=== PATIENT | male | born 1970 | race Hispanic/Latino ===

== ENCOUNTER 2019-05-08 20:18 | Emergency (ER) | payer SELFPAY ==
--- NOTE | 2019-05-08 21:19 | Emergency Department Report ---
Blank Doc - Documentation Documentation: [id number] that presents with right flank pain and hematuria. This initial assessment/diagnostic orders/clinical plan/treatment(s) is/are subject to change based on patient's health status, clinical progression and re- assessment by fellow clinical providers in the ED. Further treatment and workup at subsequent clinical providers discretion. Patient/guardians urged not to elope from the ED as their condition may be serious if not clinically assessed and managed. Initial orders include: 1- Patient sent to [facility] for further evaluation and treatment 2- UA 3- CT abd
[2019-05-08 21:53] LABS: Bilirubin,Urine NEG (Negative); Blood,Urine LG (Negative); Color,Urine Red (Yellow)
[2019-05-08 21:54] LABS: RBC,Urine > 120.0 /HPF (0.0-6.0)
[2019-05-08] MEDS ORDERED: ONDANSETRON 4 MG/2 ML INJ IV ONE (23:08)
[2019-05-08] MEDS ORDERED: MORPHINE 4 MG/1 ML INJ IV ONE (23:08)
--- NOTE | 2019-05-08 23:12 | Emergency Department Report ---
ED Abdominal Pain HPI - General Chief Complaint: Urogenital-Male Stated Complaint: HEMATURIA Time Seen by Provider: 05/08/19 21:19 Source: patient, EMS Mode of arrival: Ambulatory Limitations: No Limitations - History of Present Illness Initial Comments: Patient is 48 years old male with no significant past medical history. Patient brought to the emergency room from [facility] for evaluation of sudden onset of right flank pain that radiated down to his right groin associated with hematuria. Patient symptoms started yesterday. Patient stated that he has been nauseated but no vomiting. Patient denied any fever or chills. Patient denied any chest pain or shortness of breath. MD Complaint: flank pain -: Sudden, Last night Location: R flank Radiation: other (groin) Migration to: no migration Severity: moderate Severity scale (0 -10): 6 Quality: sharp Consistency: constant - Related Data Allergies Allergy/AdvReac Type Severity Reaction Status Date / Time NSAIDS (Non-Steroidal Allergy Anaphylaxis Verified 05/08/19 21:22 Anti-Inflamma shellfish derived Allergy Anaphylaxis Verified 05/08/19 21:22 ED Review of Systems ROS: Stated complaint: HEMATURIA Other details as noted in HPI Comment: All other systems reviewed and negative Constitutional: denies: chills, fever Respiratory: denies: cough, shortness of breath, SOB with exertion, SOB at rest Cardiovascular: denies: chest pain Gastrointestinal: abdominal pain, nausea. denies: vomiting, diarrhea, constipation, hematemesis, melena Genitourinary: hematuria. denies: urgency, dysuria, frequency, discharge, testicular pain, testicular mass Musculoskeletal: back pain Neurological: denies: headache, weakness, numbness, paresthesias, confusion ED Past Medical Hx - Past Medical History Previous Medical History?: Yes Hx Psychiatric Treatment: Yes (DEPRESSION) - Surgical History Past Surgical History?: No - Social History Smoking Status: Never Smoker Substance Use Type: None ED Physical Exam - General Limitations: No Limitations General appearance: alert, in no apparent distress, anxious - Head Head exam: Present: atraumatic, normocephalic, normal inspection - Eye Eye exam: Present: normal appearance - ENT ENT exam: Present: normal exam, normal orophraynx, mucous membranes moist - Neck Neck exam: Present: normal inspection, full ROM. Absent: tenderness, meningismus, lymphadenopathy, thyromegaly - Respiratory Respiratory exam: Present: normal lung sounds bilaterally - Cardiovascular Cardiovascular Exam: Present: regular rate, normal rhythm, normal heart sounds - GI/Abdominal GI/Abdominal exam: Present: soft, normal bowel sounds. Absent: distended, tenderness, guarding, rebound, rigid, organomegaly, mass, bruit, pulsatile mass, hernia - Extremities Exam Extremities exam: Present: normal inspection, full ROM, normal capillary refill. Absent: pedal edema, calf tenderness - Back Exam Back exam: Present: normal inspection, full ROM. Absent: CVA tenderness (R), CVA tenderness (L) - Neurological Exam Neurological exam: Present: alert, oriented X3, CN II-XII intact, normal gait, reflexes normal - Psychiatric Psychiatric exam: Present: normal mood - Skin Skin exam: Present: warm, intact, normal color ED Course Vital Signs 05/08/19 20:55 Temperature 99.6 F Pulse Rate 90 Respiratory 20 Rate Blood Pressure 155/105 O2 Sat by Pulse 95 Oximetry ED Medical Decision Making - Lab Data Result diagrams: 05/08/19 23:21 05/08/19 23:21 - Radiology Data Radiology results: report reviewed - Medical Decision Making Patient is 48 years old male with no significant past medical history. Patient brought to the emergency room from [facility] for evaluation of sudden onset of right flank pain that radiated down to his right groin associated with hematuria. Patient symptoms started yesterday. Patient stated that he has been nauseated but no vomiting. Patient denied any fever or chills. Patient denied any chest pain or shortness of breath. Patient received morphine and Zofran. Patient stated that he is feeling better. Labs reviewed and showed a UTI. CT abdomen and pelvis is negative for acute finding. Patient given prescription for ciprofloxacin and tramadol and Zofran and advised to follow-up with his primary care physician in the next 2 to 3 days and to return to the ER if symptoms are not improved. Critical care attestation.: If time is entered above; I have spent that time in minutes in the direct care of this critically ill patient, excluding procedure time. ED Disposition Clinical Impression: Abdominal pain, UTI (urinary tract infection) Disposition: TO HOME OR SELFCARE Is pt being admited?: No Condition: Stable Instructions: Urinary Tract Infection in Men (ED), Abdominal Pain (ED) Referrals: LENA MAURICIO MD [Primary Care Provider] - 3-5 Days
--- NOTE | 2019-05-08 23:30 | Cat Scan Report ---
CT abdomen pelvis wo con INDICATION: flank pain. TECHNIQUE: All CT scans at this location are performed using the following dose modulation technique: Automated exposure control. Helical slices were obtained through the abdomen and pelvis. No contrast is adminis tered. COMPARISON: None available. FINDINGS: Abdomen: No acute abnormality is seen in the lower chest area the liver, spleen, pancreas, adrenal gl ands, and small bowel show no acute abnormality. There is a 2.5 cm myelolipoma in the right adrenal g land. The appendix is unremarkable. There is a hyperdense cyst in the upper pole the right kidney. There is no hydronephrosis. There are no ureteral calculi. There are no renal calculi. The aorta is normal in diameter. There is no adenopathy. Pelvis: There is sigmoid diverticulosis. There is no CT evidence of diverticulitis. There is scattere d diverticula throughout the colon. There is no obstruction or inflammation. There is no free air. On review of bone windows, postoperative changes are noted in the upper lumbar spine. No acute osseo us abnormality is seen. IMPRESSION: 1. There is no obstruction, inflammation, or free air. There are no abnormal fluid collections. There is a myelolipoma in the right adrenal gland. There is a hyperdense cyst in the right kidney. Signer Name: Stephan Craig MD Signed: 05/08/2019 11:26 PM Workstation Name: [id number]
[2019-05-08 23:38] LABS: Basophils # (Auto) 0.1 K/mm3 (0.0-0.1); Basophils % (Auto) 0.7 % (0.0-1.8); Eosinophils # (Auto) 0.2 K/mm3 (0.0-0.4); Eosinophils % (Auto) 2.1 % (0.0-4.3); Hematocrit 41.1 % (35.5-45.6); Hemoglobin 14.5 gm/dl (11.8-15.2); Lymphocytes % (Auto) 24.4 % (13.4-35.0); Mean Corpuscular HGB Conc 35 % (32-34); Mean Corpuscular Volume 86 fl (84-94); Monocytes # (Auto) 0.5 K/mm3 (0.0-0.8); Monocytes % (Auto) 6.6 % (0.0-7.3); Platelet Count 161 K/mm3 (140-440); Red Blood Count 4.78 M/mm3 (3.65-5.03); Red Cell Distribution Width 13.9 % (13.2-15.2)
[2019-05-08 23:58] LABS: BUN/Creatinine Ratio 11; Blood Urea Nitrogen 9 mg/dL (9-20); Calcium 9.1 mg/dL (8.4-10.2); Hemolysis Index 4
[2019-05-09] MEDS ORDERED: MORPHINE 2 MG/1 ML INJ IV ONE (00:45)
[2019-05-09] MEDS ORDERED: cefTRIAXone/NS 1 GM/50 ML 1 GM/50 ML BAG IV ONE (00:53)
[2019-05-09 04:48] VITALS: BP 114/80
== END 2019-05-09 03:15 | disposition home or self-care (01) ==
LOC: ED 20:18
DX: N39.0 Urinary tract infection, site not specified (principal); F32.9 Major depressive disorder, single episode, unspecified; Z91.013 Allergy to seafood; Z88.6 Allergy status to analgesic agent
CPT/HCPCS: 36415; 74176; 80048; 81001; 85025; 87086; 96365; 96375; 96376; 99284; J0696; J2270; J2405

== ENCOUNTER 2019-05-09 13:19 | Emergency (ER) | payer SELFPAY ==
[2019-05-09] MEDS ORDERED: FAMOTIDINE 20 MG/2 ML INJ IV ONE (14:07)
[2019-05-09] MEDS ORDERED: methylPREDNISolone Sod Succinate 125 MG/2 ML INJ IV ONE (14:07)
[2019-05-09] MEDS ORDERED: MORPHINE 4 MG/1 ML INJ IV ONE ×2 (14:07→16:21)
[2019-05-09] MEDS ORDERED: IPRATROPIUM/ALBUTEROL SULFATE 3 ML AMPUL.NEB IH ONE (14:08)
--- NOTE | 2019-05-09 14:32 | Emergency Department Report ---
HPI - General Chief Complaint: Allergic Reaction Time Seen by Provider: 05/09/19 14:00 - HPI HPI: 48-year-old male presents to the emergency department from [facility] where he is being treated for some depression due to the recent loss of his . The patient was previously a 1013 there but has been transferred over to voluntary status. The patient presents to the ED today because of an allergic reaction to some fish that he ate. He says that he had some itching, rash, swelling of the tongue and it caused some wheezing within the chest. The patient received some Benadryl which resolved the tongue swelling, but he still complains of the other symptoms, although improved from when this first occurred. Secondly, the patient also complains of some right flank pain and hematuria. The patient was recently seen at [facility] for the "kidney pain" and the hematuria and the patient says that he had a CT scan completed that showed "some type of mass or cyst." However the patient was medically cleared to go to [place] from that facility and was instructed to follow-up outpatient with urology and patient was placed on antibiotics. ED Past Medical Hx - Past Medical History Previous Medical History?: Yes Hx Psychiatric Treatment: Yes (DEPRESSION) Additional medical history: A-fib - Surgical History Past Surgical History?: No - Social History Smoking Status: Never Smoker Substance Use Type: None - Medications Home Medications: Home Medications Medication Instructions Recorded Confirmed Last Taken Type Ciprofloxacin HCl [Ciprofloxacin 500 mg PO Q12HR #20 tab 05/09/19 Unknown Rx TAB] EPINEPHrine [Epipen 2-Santiago] 0.3 mg IJ ONCE PRN #1 auto.injct 05/09/19 Unknown Rx Famotidine [Pepcid] 20 mg PO BID #8 tablet 05/09/19 Unknown Rx Ondansetron [Zofran Odt] 4 mg PO Q8HR PRN #14 tab.rapdis 05/09/19 Unknown Rx diphenhydrAMINE [Benadryl CAP] 25 mg PO Q8HR PRN #12 capsule 05/09/19 Unknown Rx predniSONE [Deltasone] 20 mg PO BID #8 tab 05/09/19 Unknown Rx traMADoL [Ultram] 50 mg PO Q6HR PRN #14 tablet 05/09/19 Unknown Rx ED Review of Systems ROS: Stated complaint: ALLERGIC REACTION Other details as noted in HPI Comment: All other systems reviewed and negative Constitutional: denies: chills, fever Eyes: denies: eye pain, vision change ENT: other (tongue swelling). denies: ear pain, throat pain Respiratory: wheezing. denies: cough Cardiovascular: denies: chest pain, palpitations Gastrointestinal: abdominal pain (right flank pain). denies: vomiting Genitourinary: denies: dysuria, discharge Musculoskeletal: denies: joint swelling, arthralgia Skin: rash, pruritus Neurological: denies: headache, weakness Physical Exam - Physical Exam Vital Signs: Vital Signs 05/09/19 13:33 Temperature 98.7 F Pulse Rate 93 H Respiratory 13 Rate Blood Pressure 154/93 [Left] O2 Sat by Pulse 95 Oximetry Physical Exam: GENERAL: The patient is well-developed well-nourished. HENT: Normocephalic. Atraumatic. Patient has moist mucous membranes. EYES: Extraocular motions are intact. NECK: Supple. Trachea is midline. CHEST/LUNGS: Clear to auscultation. There is no respiratory distress noted. HEART/CARDIOVASCULAR: Regular. There is no tachycardia. There is no murmur. ABDOMEN: Abdomen is soft. Unable to reproduce right flank pain to palpation. Patient has normal bowel sounds. There is no abdominal distention. SKIN: Skin is warm and dry. NEURO: The patient is awake, alert, and oriented. The patient is cooperative. The patient has no focal neurologic deficits. Normal speech. MUSCULOSKELETAL: There is no tenderness or deformity. There is no evidence of acute injury. ED Course Vital Signs 05/09/19 13:33 Temperature 98.7 F Pulse Rate 93 H Respiratory 13 Rate Blood Pressure 154/93 [Left] O2 Sat by Pulse 95 Oximetry ED Medical Decision Making - Lab Data Result diagrams: 05/09/19 15:30 05/09/19 15:30 - Radiology Data Radiology results: report reviewed, image reviewed interpreted by me: Chest x-ray does not show any acute process. There are no pleural effusions, obvious pneumonia and there is no pneumothorax. Abdominal x-ray shows nonspecific nonobstructive bowel gas. CT abdomen pelvis wo con INDICATION: flank pain. TECHNIQUE: All CT scans at this location are performed using the following dose modulation technique: Automated exposure control. Helical slices were obtained through the abdomen and pelvis. No contrast is administered. COMPARISON: None available. FINDINGS: Abdomen: No acute abnormality is seen in the lower chest area the liver, spleen, pancreas, adrenal glands, and small bowel show no acute abnormality. There is a 2.5 cm myelolipoma in the right adrenal gland. The appendix is unremarkable. There is a hyperdense cyst in the upper pole the right kidney. There is no hydronephrosis. There are no ureteral calculi. There are no renal calculi. The aorta is normal in diameter. There is no adenopathy. Pelvis: There is sigmoid diverticulosis. There is no CT evidence of diverticulitis. There is scattered diverticula throughout the colon. There is no obstruction or inflammation. There is no free air. On review of bone windows, postoperative changes are noted in the upper lumbar spine. No acute osseous abnormality is seen. IMPRESSION: 1. There is no obstruction, inflammation, or free air. There are no abnormal fluid collections. There is a myelolipoma in the right adrenal gland. There is a hyperdense cyst in the right kidney. - Medical Decision Making This patient presents to the emergency department with right-sided flank pain, hematuria and nausea without vomiting. The patient was seen for this last night and had a work-up that included a CT scan of the abdomen and pelvis. The results of that CT are noted and show a right adrenal myolipoma and a renal cyst but otherwise no acute process or obvious etiology of the patient's symptoms. He did have a urinary tract infection last night but this has cleared. He still does have hematuria on urinalysis. Patient's labs today are unremarkable including CBC, metabolic panel and urinalysis except for the hematuria. A chest and abdominal x-ray were done that did not show any acute process. Patient was given 2 doses of medication for analgesia with some improvement in his symptoms. He was prescribed antibiotics, Zofran and narcotic pain medication last night. The other reason for the patient's presentation today was an allergic reaction. He said that he initially had some swelling of the tongue but that had resolved prior to arrival in the emergency department after getting some Benadryl. He has some areas of urticaria to the chest. Otherwise there is no other signs of angioedema or anaphylaxis. The patient was given Solu-Medrol, Pepcid. The patient was reevaluated multiple times and has been in the emergency department for close to 6 hours prior to transport arriving and there has been no return of his allergic reaction. We discussed staying away from any further fish, shellfish, or food unless he knows the actual ingredients. He was given a prescription for an EpiPen to use if there are any signs of angioedema or anaphylaxis but he understands he must call 911 immediately if he needs to use this medication on himself. Overall the patient has been instructed to return to the ER with any worsening of his symptoms or any acute distress. - Differential Diagnosis UTI, nephrolithiasis, malignancy, allergic reaction, dermatitis Critical Care Time: No Critical care attestation.: If time is entered above; I have spent that time in minutes in the direct care of this critically ill patient, excluding procedure time. ED Disposition Clinical Impression: Flank pain Hematuria Qualifiers: Hematuria type: unspecified type Qualified Code(s): R31.9 - Hematuria, unspecified Hypertension Qualifiers: Hypertension type: essential hypertension Qualified Code(s): I10 - Essential (primary) hypertension Allergic reaction Qualifiers: Encounter type: initial encounter Qualified Code(s): T78.40XA - Allergy, unspecified, initial encounter Disposition: [id number]/TX-[id number] PSY HOSP/PSY UNIT Is pt being admited?: No Condition: Stable Instructions: Urticaria (ED), Acute Hematuria (ED), Hypertension (ED), Flank Pain (ED) Additional Instructions: Please follow-up with a primary care physician and a urologist, as soon as you are done with [facility]. I have given you a referral for a local urologist, Dr. Hernandez, to follow-up regarding the blood in your urine. Take the medications as previously prescribed. Return to the emergency department with any worsening of your symptoms or any acute distress. I have prescribed for you some prednisone, Pepcid and Benadryl for your allergic reaction. Please avoid any further shellfish or contrast or any known allergens. I have also prescribed an EpiPen in case you develop any signs/symptoms of angioedema or anaphylaxis such as swelling of the tongue or th roat, chest pain, shortness of breath. If you have to use the EpiPen then you must return to the closest emergency department immediately afterwards by calling 911. Prescriptions: diphenhydrAMINE [Benadryl CAP] 25 mg PO Q8HR PRN #12 capsule PRN Reason: Allergic Reaction predniSONE [Deltasone] 20 mg PO BID #8 tab EPINEPHrine [Epipen 2-Santiago] 0.3 mg IJ ONCE PRN #1 auto.injct PRN Reason: Anaphylaxis Famotidine [Pepcid] 20 mg PO BID #8 tablet Referrals: SHUKRI HERNANDEZ MD [Staff Physician] - 2-3 Days PRIMARY CARE, [Primary Care Provider] - 2-3 Days Time of Disposition: 16:42
--- NOTE | 2019-05-09 14:41 | XRay Report ---
ABDOMINAL SERIES WITH CHEST X-RAY HISTORY: Wheezing, abdominal pain COMPARISON: CT abdomen pelvis performed 05/08/2019 FINDINGS: Single view of the chest is unremarkable. Supine and upright views the abdomen demonstrate an unremarkable bowel gas pattern. No evidence for o bstruction, large air-fluid levels or free air. Cholecystectomy clips are noted in the right upper qu adrant. Previous thoracolumbar fusion changes are noted. IMPRESSION: No acute abdominal process. Signer Name: Tito Murcia Jr, MD Signed: 05/09/2019 2:37 PM Workstation Name: [id number]
[2019-05-09 15:42] LABS: Bilirubin,Urine NEG (Negative); Blood,Urine LG (Negative); Color,Urine Yellow (Yellow); Mucus,Urine 1+ /HPF; Urobilinogen,Urine < 2.0 mg/dL (<2.0)
[2019-05-09 15:46] LABS: RBC,Urine > 182.0 /HPF (0.0-6.0)
[2019-05-09 15:52] LABS: Eosinophils % (Auto) 2.2 % (0.0-4.3); Hematocrit 43.1 % (35.5-45.6); Hemoglobin 14.8 gm/dl (11.8-15.2); Lymphocytes % (Auto) 23.1 % (13.4-35.0); Mean Corpuscular HGB Conc 34 % (32-34); Mean Corpuscular Volume 87 fl (84-94); Monocytes % (Auto) 7.4 % (0.0-7.3); Platelet Count 141 K/mm3 (140-440); Red Blood Count 4.93 M/mm3 (3.65-5.03); Red Cell Distribution Width 14.2 % (13.2-15.2)
[2019-05-09 15:53] LABS: Basophils % (Auto) 0.6 % (0.0-1.8); Eosinophils # (Auto) 0.1 K/mm3 (0.0-0.4); Lymphocytes # (Auto) 1.5 K/mm3 (1.2-5.4); Monocytes # (Auto) 0.5 K/mm3 (0.0-0.8)
[2019-05-09 16:00] LABS: Alanine Aminotransferase 12 units/L (7-56); Albumin 3.8 g/dL (3.9-5); BUN/Creatinine Ratio 16; Blood Urea Nitrogen 13 mg/dL (9-20); Calcium 8.6 mg/dL (8.4-10.2); Hemolysis Index 29
[2019-05-09] MEDS ORDERED: ONDANSETRON 4 MG/2 ML INJ IV ONE (16:16)
[2019-05-09 19:33] VITALS: BP 121/70
== END 2019-05-09 20:20 ==
LOC: ED 13:19
DX: T78.40XA Allergy, unspecified, initial encounter (principal); R10.9 Unspecified abdominal pain; R31.9 Hematuria, unspecified; I10 Essential (primary) hypertension; F32.9 Major depressive disorder, single episode, unspecified; I48.91 Unspecified atrial fibrillation; Z91.013 Allergy to seafood; Z88.6 Allergy status to analgesic agent; Z79.899 Other long term (current) drug therapy; X58.XXXA Exposure to other specified factors, initial encounter
CPT/HCPCS: 36415; 74022; 80053; 81001; 85025; 94640; 96374; 96375; 96376; 99285; J2270; J2405; J2930